=== PATIENT | female | born 1990 | race Caucasian/White ===

== ENCOUNTER 2016-06-29 23:21 | Emergency (ER) | payer OTHER ==
[2016-06-30 00:23] LABS: BASOPHIL 0.4 % (0-2); EOSINOPHIL 1.4 % (0-5); HCT 41.2 % (37.0-47.0); HGB 14.5 g/dl (12.5-16.0); LYMPHOCYTE 40.4 % (15-48); MCH 32.7 pg (25.0-31.0); MCHC 35.2 g/dL (32.0-36.0); MONOCYTE 8.8 % (0-12); MPV 10.8 fL (6.0-9.5); PLT 162 K/uL (150-400); RBC 4.43 M/uL (4.20-5.40); RDW 12.7 % (11.5-14.0)
[2016-06-30 00:39] LABS: BILIRUBIN NEGATIVE (NEGATIVE); BLOOD 3+ Ery/uL (NEGATIVE); CLARITY CLEAR (CLEAR); COLOR YELLOW (YELLOW); GLUCOSE (U) NORMAL (NORMAL); KETONE (U) TRACE mg/dL (NEGATIVE); LEUKOCYTES NEGATIVE Leu/uL (NEGATIVE); NITRITE NEGATIVE (NEGATIVE); PROTEIN NEGATIVE (NEGATIVE); SPECIFIC GRAVITY >=1.030 (1.001-1.030); UROBILINOGEN 0.2 mg/dL (0.2-1.0)
[2016-06-30 00:40] LABS: CREATININE 0.7 mg/dL (0.5-1.0)
[2016-06-30 00:48] LABS: BACTERIA TRACE; URINARY WBC RARE
== END 2016-06-30 05:32 | disposition home or self-care (01) ==
LOC: FER 23:21
PROVIDERS: Emergency Medicine Emergency Medical Services
DX: R10.2 Pelvic and perineal pain (principal); R11.2 Nausea with vomiting, unspecified; R39.9 Unspecified symptoms and signs involving the genitourinary system; E86.9 Volume depletion, unspecified; R82.90 Unspecified abnormal findings in urine; Z98.890 Other specified postprocedural states
CPT/HCPCS: 36415; 74000; 76856; 80048; 81001; 85025; 87088; 87210; J1170; J1885; J2405; Q9967

== ENCOUNTER 2016-08-26 19:40 | Emergency (ER) | payer OTHER ==
[2016-08-26 20:34] LABS: BILIRUBIN NEGATIVE (NEGATIVE); BLOOD 3+ Ery/uL (NEGATIVE); CLARITY CLEAR (CLEAR); COLOR YELLOW (YELLOW); GLUCOSE (U) NORMAL (NORMAL); KETONE (U) NEGATIVE (NEGATIVE); LEUKOCYTES NEGATIVE Leu/uL (NEGATIVE); NITRITE NEGATIVE (NEGATIVE); PROTEIN NEGATIVE (NEGATIVE); SPECIFIC GRAVITY 1.025 (1.001-1.030); UROBILINOGEN 0.2 mg/dL (0.2-1.0)
[2016-08-26 20:37] LABS: BACTERIA 1+
== END 2016-08-26 23:50 | disposition home or self-care (01) ==
LOC: FER 19:40
PROVIDERS: Emergency Medicine Emergency Medical Services
DX: N83.209 Unspecified ovarian cyst, unspecified side (principal); Z87.891 Personal history of nicotine dependence
CPT/HCPCS: 81001; 87210; J1885